=== PATIENT | female | born 1980 | race Caucasian/White ===

== ENCOUNTER 2017-04-18 22:11 | Inpatient (IN) | payer MEDICAID, OTHER ==
[~2017-04-18] VITALS: Ht 167.6 cm; Wt 91.8 kg
[~2017-04-18 22:11] MED LIST: MTF1000T PO
[2017-04-18 23:45] VITALS: Ht 167.6 cm; Wt 91.8 kg
[2017-04-19] MEDS ORDERED: BETAMET NA PHOS/AC(6 MG/ML) 5ML INJ IM SCH
[2017-04-19] MEDS ORDERED: MAGNESIUM SULFATE 4 GM/100 ML 100 ML IV ONE
[2017-04-19] MEDS ORDERED: MAGNESIUM SULFATE 20 GM/500 ML 500 ML IV SCH (00:30)
[2017-04-19] MEDS: LACTATED RINGER'S 1,000 ML IV SCH ×5 (00:52→23:28)
--- NOTE | 2017-04-19 00:57 | RADRPT ---
PROCEDURE: US OB. CLINICAL INDICATION: Contractions TECHNIQUE: Pelvic ultrasound performed for biophysical profile. COMPARISON: Complete obstetrical ultrasound 04/19/2017 FINDINGS: Single intrauterine gestation present with heart rate at 146 beats per minute. Presentation is chencho ch. Placenta is posterior, grade I. Biophysical profile score is 8/8 (breathing=2, movement=2, ton e =2, fluid volume=2). Amniotic fluid volume is increased with CARLOS = 21.4 cm. The closed cervix easley s a length measured at 3.2 cm. RPTAT:HJJR IMPRESSION: 1. Biophysical profile score 8/8. 2. Polyhydramnios, the amniotic fluid index of 21.4 cm. 3. Closed cervical length measured at 3.2 cm. Physician Ree Date Time Electronically viewed and signed by Physician Ree on 04/19/2017 00:57 /
[2017-04-19 01:18] LABS: BASOPHILS % 0.3 % (0.0-2.0); EOSINOPHILS # 0.1 10^3/ul (0.0-0.5); HEMATOCRIT 30.6 % (37.0-47.0); LYMPHOCYTES % 28.2 % (15.0-51.0); MEAN CORPUSCULAR HEMOGLOBIN 29.6 pg (29.0-33.0); MEAN CORPUSCULAR HGB CONC 35.9 g/dl (32.0-37.0); MEAN CORPUSCULAR VOLUME 82.5 fl (82.0-101.0); MEAN PLATELET VOLUME 11.2 fl (7.4-10.4); MONOCYTE # 0.7 10^3/ul (0.3-0.9); MONOCYTES % 10.4 % (0.0-11.0); NEUTROPHIL # 4.1 10^3/ul (1.6-7.5); NEUTROPHILS % 58.5 % (39.0-77.0); PLATELET COUNT 229 10^3/UL (140-415); RED BLOOD COUNT 3.71 10^6/ul (4.20-5.40); RED CELL DISTRIBUTION WIDTH 12.9 % (11.5-14.5)
[2017-04-19 01:35] LABS: INR 0.93; PROTIME 12.6 Sec (11.9-14.9)
[2017-04-19 01:36] LABS: PARTIAL THROMBOPLASTIN TIME 28.7 Sec (25.0-35.0)
[2017-04-19 01:40] LABS: ADD UMIC YES; UR ASCORBIC ACID 20 mg/dL (NEGATIVE); UR BACTERIA MANY /HPF (NONE SEEN); UR BILIRUBIN (Dip) NEGATIVE (NEGATIVE); UR BLOOD (Dip) NEGATIVE (NEGATIVE); UR CLARITY SLIGHTLY CLOUDY (CLEAR); UR COLOR YELLOW (YELLOW); UR GLUCOSE (Dip) 1+ mg/dL (NEGATIVE); UR KETONES (Dip) NEGATIVE (NEGATIVE); UR LEUKOCYTE ESTERASE (Dip) 2+ Leu/ul (NEGATIVE); UR MUCUS FEW /HPF (NONE SEEN); UR NITRITE (Dip) POSITIVE (NEGATIVE); UR RBC 2 /HPF (0-5); UR SPECIFIC GRAVITY (Dip) 1.019 (1.003-1.030); UR SQUAMOUS EPITHELIAL CELL FEW /HPF (FEW); UR TOTAL PROTEIN (Dip) NEGATIVE (NEGATIVE); UR UROBILINOGEN (Dip) NEGATIVE (NEGATIVE)
[2017-04-19 01:44] LABS: ALBUMIN 3.1 g/dl (3.3-4.9); ALBUMIN/GLOBULIN RATIO 0.75; BILIRUBIN,INDIRECT 0.2 mg/dl (0-1.1); BILIRUBIN,TOTAL 0.2 mg/dl (0.2-1.3); CALCIUM 9.7 mg/dl (8.4-10.2); CREATININE 0.49 mg/dl (0.44-1.00); TOTAL PROTEIN 7.2 g/dl (6.1-8.1)
[2017-04-19] MEDS: PRENATAL VITAMIN PO SCH (08:58)
[2017-04-19] MEDS: DOCUSATE SODIUM 100 MG CAP PO SCH (08:59)
[2017-04-19] MEDS: FERROUS SULFATE (EC) 325 MG TAB PO SCH ×2 (08:59→22:16)
--- NOTE | 2017-04-19 09:01 | PREOPHP ---
DATE OF ADMISSION: 04/18/2017 CHIEF COMPLAINT: Uncontrolled diabetes. HISTORY OF PRESENT ILLNESS: This is a 37-year-old female, 5, para 3, with 3 previous sections. EDC confirmed by early and serial ultrasound is 06/11/2017. She is a known diabetic and got without any control of her diabetes and no medication. She came into the office yesterday complaining of thirst and having had a fasting blood sugar of 280. It is unclear to me whether this patient has had knowledge of her insulin regimen and whether she is following it as prescribed. She had been followed with the [facility] group. She was apparently indicated to take 25 units of NPH insulin in the morning and 14 regular. Also, 25 units of NPH in the evening and 12 units of regular with dinner. Her hemoglobin A1c today is 80%. I have noticed by the OB ultrasound by the [facility] group she was found the baby to be already macrosomic on 03/26/2017. Also, a echocardiogram done on 2016 showed a small mid muscular VSD. Her NIPT done in the first trimester was low risk,a male baby. PAST MEDICAL HISTORY: She has been diabetic for at least 6 years. She denies hypertension, cardiovascular disease. She denies renal disease, liver disease, or neurological problems. ALLERGIES: NO KNOWN ALLERGIES. FAMILY HISTORY: Noncontributory. REVIEW OF SYSTEMS: A 12-point review of systems is noncontributory. PHYSICAL EXAMINATION: GENERAL: Well-developed and nourished, in no distress, alert and oriented x3. VITAL SIGNS: Showed temperature to be 98, blood pressure 120/70, respirations 16 per minute, the pulse is 72 per minute regular. HEENT: Within normal limits. Pupils are PERRLA. NECK: Supple. Thyroid is not palpable. There is no lymphadenopathy. LUNGS: Clear to percussion and auscultation. HEART: Normal sinus rhythm without a murmur. ABDOMEN: Soft. Uterus enlarged up to 36 cm above the pubic bone, single baby, longitudinal lie. heart rate is category 1. PELVIC: Deferred. EXTREMITIES: Within normal limits. NEUROLOGIC: Also normal. IMPRESSION: 33 weeks' gestation. Uncontrolled diabetes. Previous section x3. PLAN: The patient is admitted for uncontrolled diabetes. Consultation with perinatology.Consultation with [facility]. Dictated By: ALPESH SMITH/CAMI Conf#: [id number] DID#: [id number] MTDD
--- NOTE | 2017-04-19 17:32 | CONS ---
DATE OF ADMISSION: 04/18/2017 DATE OF CONSULTATION: 04/19/2017 HISTORY OF PRESENT ILLNESS: The patient is with intrauterine at 32 weeks and 3 days, pres ented last night with uncontrolled diabetes. She presented to her clinic. At clinic, her blood sug ar was elevated, and she was advised to come to the hospital. She is currently on insulin, the dosi ng she does not remember. The last time she took insulin was yesterday morning. Her insulin is man aged at [place]. Her fasting level today is 91 and apparently the 2-hour after breakfast was 121 . PAST MEDICAL HISTORY: Diabetes for 6 years, prior x____. VITAL SIGNS: Stable. PHYSICAL EXAMINATION: Deferred. heart tones reassuring. IMPRESSION: 1. Intrauterine at 32 weeks and 3 days with diabetes, apparently uncontrolled on insulin; however, her fasting value and 2-hour after breakfast here have been normal. 2. History of section x3, all of them secondary to macrosomia. The patient states that sh flower has had deliveries, all 3, at about 32 weeks because of macrosomia. I am not exactly sure if she is reporting this correctly, but the weight of the babies has been about 10 pounds, 12 pounds and th e last 8 pounds. RECOMMENDATIONS: 1. For the time being, I would ____ discontinue the insulin that she was taking at home, ____ insul in sliding scale until further values are available throughout the day and tomorrow, we will re-eval uate if there is a need for insulin, but for now I do recommend no insulin except for sliding scale as needed. 2. Complete metabolic panel and 24-hour urine for protein. 3. Nutrition consult has been ordered. We will follow the patient with you. Dictated By: GERALD VALENTIN MD ST/CAMI Conf#: [id number] DID#: [id number] CC: ALPESH LEVINE MD;*End*
[2017-04-19] MEDS ORDERED: INSULIN ASPART [NOVOLOG] 3 ML PEN SC SCH ×2 (17:35→19:35)
[2017-04-19] MEDS ORDERED: INSULIN DETEMIR [LEVEMIR] 3ML CART SC SCH (20:00)
[2017-04-19] MEDS ORDERED: DEXTROSE 50% 50 ML SYRINGE IV PRN ×2 (21:30)
[2017-04-19] MEDS ORDERED: GLUCAGON 1 MG INJ IM PRN (21:30)
[2017-04-19] MEDS ORDERED: GLUCOSE GEL 15 GRAM TUBE PO PRN ×2 (21:30)
[2017-04-19] MEDS ORDERED: GLUCOSE GEL 15 GRAM TUBE BUCCAL PRN (21:30)
--- NOTE | 2017-04-19 21:30 | CONS ---
Date/Time of Note Date/Time of Note DATE: 04/19/17 TIME: 21:22 Assessment/Plan Assessment/Plan Problems: (1) with type 2 diabetes mellitus in third trimester Status: Chronic Comment: The patient is now between 32 and 33 weeks gestation. In terms of size and anatomy am deferring off management to the issues for perinatology which will be taken over by Dr. Grullon in the morning. Dr. Howard is the primary clinical assessment manager. The dosing of insulin that she was taking as an outpatient was actually significantly higher than she was initially here in the first 24 hours. I find this to be a somewhat curious thing and I am worried about dosing her at her original levels. We should actually have a smoother ride using the newer analog insulins which I can arrange to get for her as an outpatient. For now and place her on a lower dosage of the Levemir with mealtime rapid acting insulins or basal bolus regimen and follow her along carefully please note I do not feel that metformin is presently to be used.. I will try my best to coordinate with the perinatology team and the primary OB. Respectfully yours Consultation Date/Type/Reason Admit Date/Time Apr 18, 2017 at 22:14 Date of Consultation: Apr 19, 2017 Type of Consultation: Endocrinology Reason for Consultation 37-year-old female Ab1 roughly 32-33 weeks gestation. Referring Provider: ALPESH HOWARD MD Hx of Present Illness She has a history of gestational diabetes starting 11 years ago. After her last she reportedly was diabetic . She reported that she was not under any specific physician's care and she enjoyed good blood sugar control up to the time of due to diet and exercise protocol with no medical intervention. She has been managed for work by our colleagues at [facility] in the [facility] group. I do not have immediate access to the records but I am told by our in-house perinatologist that she has reviewed them. At this time the patient has been admitted for in adequate glycemic control along with somewhat large size baby and possible VSD. Again as stated I do not have access to her earlier laboratory testing her A1c at this time is 8.0. Dr. duval he has already seen the patient in consultation and has asked me to now step in and assist with glycemic management specifically Constitutional: no complaints Eyes: no complaints ENT: no complaints (No known complications right related to the eyes) Respiratory: no complaints Cardiovascular: no complaints Gastrointestinal: no complaints Genitourinary: no complaints Musculoskeletal: no complaints Skin: no complaints Neurologic: no complaints Endocrine: polyuria Lymphatic: no complaints Psychological: nl mood/affect, no complaints Past Medical History Medical History: diabetes, other ( Ab1 with an EDC of June 10, 2017; gestational diabetes; diabetes mellitus type 2; usual childhood diseases; history of varus sella) Past Surgical History Past Surgical Hx: other (Status post 3) Family History Significant Family History: diabetes Social History Alcohol Use: rarely Smoking Status: Never smoker Drug Use: none Exam/Review of Systems Vital Signs Vitals Intake and Output 04/18/17 04/18/17 04/19/17 15:00 23:00 07:00 Intake Total 2000 ml Output Total 600 ml Balance 1400 ml Exam Constitutional: alert, oriented Psych: nl mood/affect, no complaints Head: atraumatic, normocephalic Eyes: EOMI, nl conjunctiva, nl lids ENMT: nl external ears & nose, nl lips & teeth, nl nasal mucosa & septum Neck: non-tender, supple Respiratory: clear to auscultation, normal air movement Cardiovascular: nl pulses, regular rate and rhythm Gastrointestinal: nl liver, spleen, non-tender, soft Results Result Diagram: 04/19/174604/19/1746 Results 24 hrs Laboratory Tests Test 04/18/17 23:10 04/19/17 00:15 04/19/17 00:47 04/19/17 07:44 Bedside Glucose 189 91 Urine Color YELLOW Urine Clarity SLIGHTLY CLOUDY A Urine pH 5.0 Urine Specific [place] 1.019 Urine Ketones NEGATIVE Urine Nitrite POSITIVE A Urine Bilirubin NEGATIVE Urine Urobilinogen NEGATIVE Urine Leukocyte Esterase 2+ H Urine Microscopic RBC 2 Urine Microscopic WBC 37 H Urine Squamous Epithelial Cells FEW Urine Bacteria MANY A Urine Mucus FEW A Urine Hemoglobin NEGATIVE Urine Glucose 1+ H Urine Total Protein NEGATIVE White Blood Count 7.0 Red Blood Count 3.71 L Hemoglobin 11.0 L Hematocrit 30.6 L Mean Corpuscular Volume 82.5 Mean Corpuscular Hemoglobin 29.6 Mean Corpuscular Hemoglobin Concent 35.9 Red Cell Distribution Width 12.9 Platelet Count 229 Mean Platelet Volume 11.2 H Neutrophils % 58.5 Lymphocytes % 28.2 Monocytes % 10.4 Eosinophils % 2.0 Basophils % 0.3 Nucleated Red Blood Cells % 0.0 Neutrophils # 4.1 Lymphocytes # 2.0 Monocytes # 0.7 Eosinophils # 0.1 Basophils # 0.0 Nucleated Red Blood Cells # 0.0 Prothrombin Time 12.6 Prothrombin Time Ratio 1.0 INR International Normalized Ratio 0.93 Activated Partial Thromboplast Time 28.7 Sodium Level 135 Potassium Level 4.0 Chloride Level 105 Carbon Dioxide Level 21 Anion Gap 13 Blood Urea Nitrogen 11 Creatinine 0.49 Glucose Level 154 Hemoglobin A1c 8.0 H Calcium Level 9.7 Total Bilirubin 0.2 Direct Bilirubin 0.00 Indirect Bilirubin 0.2 Aspartate Amino Transf (AST/SGOT) 30 Alanine Aminotransferase (ALT/SGPT) 39 Alkaline Phosphatase 127 H Total Protein 7.2 Albumin 3.1 L Globulin 4.10 H Albumin/Globulin Ratio 0.75 Rapid Plasma Reagin NONREACTIVE Hepatitis B Surface Antigen NEGATIVE Hepatitis C Antibody NEGATIVE Test 04/19/17 11:07 04/19/17 15:54 04/19/17 20:31 Bedside Glucose 121 146 146 Medications Medications Outpatient medications were NPH insulin 20 units in the morning 25 units at bedtime regular insulin 12 units in the morning 14 units at dinner. And vitamins Current Medications Lactated Ringer's (Lr) 1,000 ml @ 125 mls/hr Q8H IV Last administered on 15:08; Admin Dose 125 MLS/HR; Start 04/18/17 at 23:45 Prenat Multivit/ [place]/Iron/Folic Ac () 1 tab DAILY PO Last administered on 04/19/17 08:58; Admin Dose 1 TAB; Start 04/19/17 at 09:00 Ferrous Sulfate (Ferrous Sulfate (Ec)) 325 mg BID PO Last administered on 08:59; Admin Dose 325 MG; Start 04/19/17 at 09:00 Docusate Sodium (Colace) 100 mg DAILY PO ; Start 04/19/17 at 09:00 Miscellaneous Information (* Miscellaneous Pharmacy Order) Discontinue current oral sulfonylur... ONCE ONCE XX ; Start 04/19/17 at 21:30; Stop 04/19/17 at 21: 31; Status UNV Diagnostic Test (Pha) (Accu-Chek) 1 XX ; Start 04/20/17 at 02:00; Status UNV Insulin Detemir (Levemir) 14 unit DAILY@20 SC ; Start 04/20/17 at 20:00; Status UNV Miscellaneous Information (* Miscellaneous Pharmacy Order) HYPOGLYCEMIA PROTOCOL w... ONCE ONCE XX ; Start 04/19/17 at 21:30; Stop 04/19/17 at 21:31; Status UNV Miscellaneous Information (* Miscellaneous Pharmacy Order) Discontinue all previ... ONCE ONCE XX ; Start 04/19/17 at 21:30; Stop 04/19/17 at 21:31; Status UNV ALLISON AGUIRRE MD Apr 19, 2017 21:30
[2017-04-19] MEDS: INSULIN DETEMIR [LEVEMIR] 3ML CART SC SCH (22:16)
[2017-04-20] MEDS ORDERED: ACCU-CHEK XX SCH (02:00)
[2017-04-20] MEDS: ACCU-CHEK XX SCH ×6 (02:04→20:50)
[2017-04-20] MEDS: DOCUSATE SODIUM 100 MG CAP PO SCH (06:15)
[2017-04-20] MEDS: LACTATED RINGER'S 1,000 ML IV SCH ×3 (07:24→23:49)
[2017-04-20] MEDS ORDERED: INSULIN ASPART [NOVOLOG] 3 ML PEN SC SCH (07:35)
[2017-04-20] MEDS: INSULIN ASPART [NOVOLOG] 3 ML PEN SC SCH ×4 (08:25→21:23)
--- NOTE | 2017-04-20 08:40 | CONS ---
Date/Time of Note Date/Time of Note DATE: 04/20/17 TIME: 08:38 Assessment/Plan Assessment/Plan Chief Complaint/Hosp Course She has a history of gestational diabetes starting 11 years ago. After her last she reportedly was diabetic . She reported that she was not under any specific physician's care and she enjoyed good blood sugar control up to the time of due to diet and exercise protocol with no medical intervention. She has been managed for work by our colleagues at [facility] in the [facility] group. I do not have immediate access to the records but I am told by our in-house perinatologist that she has reviewed them. At this time the patient has been admitted for in adequate glycemic control along with somewhat large size baby and possible VSD. Again as stated I do not have access to her earlier laboratory testing her A1c at this time is 8.0. Dr. duval he has already seen the patient in consultation and has asked me to now step in and assist with glycemic management specifically Problems: (1) with type 2 diabetes mellitus in third trimester Status: Chronic Comment: With a more modest dose of long-acting insulin she has a fasting blood sugar that is exactly within range. I have re-counseled the nursing staff about mealtime insulins and then using the sliding scale. I have also re- counseled him not to use insulin at the 2 hour postprandial sanchez as I will slow down my ability to adjust the regimen. Continue with treatment. Regarding the possibility that we have macrosomia with the baby and the possible VSD and deferring off to perinatology who I am informed will be Dr. Grullon. Consultation Date/Type/Reason Admit Date/Time Apr 18, 2017 at 22:14 Initial Consult Date 04/19/17 Type of Consultation: Endocrinology Reason for Consultation History of insulin resistance syndrome and diabetes mellitus type 2 now in the third trimester with elevated sugars and A1c of 8.0 Referring Provider: ALPESH LEVINE MD 24 HR Interval Summary Constitutional: no complaints (No fevers chills or sweats) Detailed Summary Respiratory: no complaints Cardiovascular: no complaints Gastrointestinal: no complaints Genitourinary: no complaints Exam/Review of Systems Vital Signs Vitals Intake and Output 04/19/17 04/19/17 04/20/17 15:00 23:00 07:00 Intake Total 1000 ml 875 ml 1000 ml Output Total 600 ml 900 ml 500 ml Balance 400 ml -25 ml 500 ml Exam Constitutional: alert, oriented Neck: non-tender, supple Respiratory: clear to auscultation, normal air movement Cardiovascular: nl pulses, regular rate and rhythm Gastrointestinal: nl liver, spleen, non-tender, soft Results Result Diagram: 04/19/17 0047 04/19/17 0047 Results 24 hrs Laboratory Tests Test 04/19/17 11:07 04/19/17 15:54 04/19/17 20:31 04/19/17 22:06 Bedside Glucose 121 146 146 99 Test 04/20/17 08:15 Bedside Glucose 79 Medications Medications Current Medications Lactated Ringer's (Lr) 1,000 ml @ 125 mls/hr Q8H IV Last administered on 07:24; Admin Dose 125 MLS/HR; Start 04/18/17 at 23:45 Prenat Multivit/ [place]/Iron/Folic Ac () 1 tab DAILY PO Last administered on 04/19/17 08:58; Admin Dose 1 TAB; Start 04/19/17 at 09:00 Ferrous Sulfate (Ferrous Sulfate (Ec)) 325 mg BID PO Last administered on 22:16; Admin Dose 325 MG; Start 04/19/17 at 09:00 Docusate Sodium (Colace) 100 mg DAILY PO Last administered on 04/20/17 06:15; Admin Dose 100 MG; Start 04/19/17 at 09:00 Diagnostic Test (Pha) (Accu-Chek) 1 ea 02 XX ; Start 04/20/17 at 02:00 Insulin Detemir (Levemir) 14 unit DAILY@20 SC Last administered on 04/19/17 22 :16; Admin Dose 14 UNIT; Start 04/19/17 at 21:30 Miscellaneous Information 1 ea NOTE XX ; Start 04/19/17 at 21:30 Glucose (Glutose) 15 gm Q15M PRN PO DECREASED GLUCOSE; Start 04/19/17 at 21:30 Glucose (Glutose) 22.5 gm Q15M PRN PO DECREASED GLUCOSE; Start 04/19/17 at 21: 30 Dextrose (D50w Syringe) 25 ml Q15M PRN IV DECREASED GLUCOSE; Start 04/19/17 at 21:30 Dextrose (D50w Syringe) 50 ml Q15M PRN IV DECREASED GLUCOSE; Start 04/19/17 at 21:30 Glucagon (Glucagen) 1 mg Q15M PRN IM DECREASED GLUCOSE; Start 04/19/17 at 21:30 Glucose (Glutose) 15 gm Q15M PRN BUCCAL DECREASED GLUCOSE; Start 04/19/17 at 21 :30 ALLISON AGUIRRE MD Apr 20, 2017 08:40
[2017-04-20] MEDS: PRENATAL VITAMIN PO SCH (09:21)
[2017-04-20] MEDS: FERROUS SULFATE (EC) 325 MG TAB PO SCH ×2 (09:21→21:28)
--- NOTE | 2017-04-20 09:29 | QN ---
Documentation Comment Afebrile.In good glycemic control guided by and Perinatologist. Controlled on diet and minimal amount of correcting Insulin. Baby continues to show normal activity and FHR are category 1. ALPESH LEVINE MD Apr 20, 2017 09:29
[2017-04-20 11:53] LABS: SCRET 0.49 mg/dl (0.44-1.00)
--- NOTE | 2017-04-20 13:58 | PERINOTE ---
Date/Time of Note Date/Time of Note DATE: 04/20/17 TIME: 13:47 Assessment/Recommendations Other Assessments Type 2 diabetes complicating --Elevated blood glucose on prior regimen --Patient also reports multiple hypoglycemic episodes on prior regimen History of macrosomia, with large AC described in the present fetus on ultrasound in March. This is likely a effect of maternal diabetes. Recommendations: Would continue insulin as prescribed. If the blood glucose remains under control, would favor discharge in the AM, with follow up in Perinatology in 2 week for diabetes management and at 37 weeks for ultrasound for EFW. OB Subjective Free Text/Dictaton Patient admitted for elevated blood glucose in her clinic for diabetic control. She gives a history of diabetes for the past 6 years, managed in by [facility] at [facility]. Her diabetes has not been well controlled, with HgbA1c of 10.8% in October and 8.3% in December. HD# 2 IUP @ 32W3D Complaints/Overnight events Blood glucose values in the hospital have been at or near desired levels on insulin dose as ordered by Dr. Han. Current Medications Current Medications Lactated Ringer's (Lr) 1,000 ml @ 125 mls/hr Q8H IV Last administered on 07:24; Admin Dose 125 MLS/HR; Start 04/18/17 at 23:45 Prenat Multivit/ [place]/Iron/Folic Ac () 1 tab DAILY PO Last administered on 04/20/17 09:21; Admin Dose 1 TAB; Start 04/19/17 at 09:00 Ferrous Sulfate (Ferrous Sulfate (Ec)) 325 mg BID PO Last administered on 09:21; Admin Dose 325 MG; Start 04/19/17 at 09:00 Docusate Sodium (Colace) 100 mg DAILY PO Last administered on 04/20/17 06:15; Admin Dose 100 MG; Start 04/19/17 at 09:00 Diagnostic Test (Pha) (Accu-Chek) 1 ea 02 XX ; Start 04/20/17 at 02:00 Insulin Detemir (Levemir) 14 unit DAILY@20 SC Last administered on 04/19/17 22 :16; Admin Dose 14 UNIT; Start 04/19/17 at 21:30 Miscellaneous Information 1 ea NOTE XX ; Start 04/19/17 at 21:30 Glucose (Glutose) 15 gm Q15M PRN PO DECREASED GLUCOSE; Start 04/19/17 at 21:30 Glucose (Glutose) 22.5 gm Q15M PRN PO DECREASED GLUCOSE; Start 04/19/17 at 21: 30 Dextrose (D50w Syringe) 25 ml Q15M PRN IV DECREASED GLUCOSE; Start 04/19/17 at 21:30 Dextrose (D50w Syringe) 50 ml Q15M PRN IV DECREASED GLUCOSE; Start 04/19/17 at 21:30 Glucagon (Glucagen) 1 mg Q15M PRN IM DECREASED GLUCOSE; Start 04/19/17 at 21:30 Glucose (Glutose) 15 gm Q15M PRN BUCCAL DECREASED GLUCOSE; Start 04/19/17 at 21 :30 Past Medical History Medical History: diabetes Surgical History: other ( delivery x 3, abdominoplasty) 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 Macrosomia x 3, largest 13#) Para: 3 : 5 LMP (Females 10-50): Family History Significant Family History: diabetes OB Admission Exam Physical Exam Heart: Rhythm Normal Lungs: Clear Abdomen: WNL Heart Rate: 130's Accelerations: Accelerations Present Decelerations: No Decelerations Varibility: Moderate Contractions on Admission: None Last 72 hourBlood Glucose Bedside Glucose - 72 Hours Test 04/18/17 23:10 04/19/17 07:44 04/19/17 11:07 04/19/17 15:54 Bedside Glucose 189mg/dL (70-220) 91mg/dL (70-220) 121mg/dL (70-220) 146mg/dL (70-220) Test 04/19/17 20:31 04/19/17 22:06 04/20/17 08:15 04/20/17 10:29 Bedside Glucose 146mg/dL (70-220) 99mg/dL (70-220) 79mg/dL (70-220) 94mg/dL (70-220) Test 04/20/17 12:06 Bedside Glucose 75mg/dL (70-220) Last 72 hours Lab Results CBC & BMP 04/19/17 00:47 04/19/17 14:30 Liver Function Test 04/19/17 00:47 Alanine Aminotransferase (ALT/SGPT) 39 Albumin 3.1 L Alkaline Phosphatase 127 H Aspartate Amino Transf (AST/SGOT) 30 Direct Bilirubin 0.00 Total Protein 7.2 Hemoglobin A1C Test 04/19/17 00:47 Hemoglobin A1c 8.0 H Copies To: CC: ALPESH LEVINE MD, MARIE H MD Apr 20, 2017 13:58
[2017-04-20] MEDS: INSULIN DETEMIR [LEVEMIR] 3ML CART SC SCH (20:53)
[2017-04-21] MEDS: ACCU-CHEK XX SCH ×4 (02:04→20:16)
[2017-04-21] MEDS: LACTATED RINGER'S 1,000 ML IV SCH (07:35)
[2017-04-21] MEDS: INSULIN ASPART [NOVOLOG] 3 ML PEN SC SCH ×7 (08:05→21:00)
[2017-04-21] MEDS: PRENATAL VITAMIN PO SCH (08:48)
[2017-04-21] MEDS: DOCUSATE SODIUM 100 MG CAP PO SCH (08:48)
[2017-04-21] MEDS: FERROUS SULFATE (EC) 325 MG TAB PO SCH ×2 (08:48→21:18)
--- NOTE | 2017-04-21 12:00 | QN ---
Documentation Comment 37y.o x3c/s 32w5d today tracing CAT 1 no uterine activities BS generally controlled with current regimen without additional sliding scae coverage except one time of high value at 199904/20/17 ( mostlikely she had apple juice ) u/s CARLOS 21.4 BPP 8/8 CVL 3.2 urine culture prelim pos for Gram neg rods sensitive to nitrafurantoin plan observe today follow MFM rec d/s home in am possibly DAVID CANTRELL MD Apr 21, 2017 12:00
--- NOTE | 2017-04-21 19:41 | CONS ---
Date/Time of Note Date/Time of Note DATE: 04/21/17 TIME: 19:40 Assessment/Plan Assessment/Plan Problems: (1) with type 2 diabetes mellitus in third trimester Status: Chronic Comment: improved glycemic control. meeting most glycemic targets Consultation Date/Type/Reason Admit Date/Time Apr 18, 2017 at 22:14 Initial Consult Date 04/19/17 Type of Consultation: Endocrinology Referring Provider: ALPESH LEVINE MD Exam/Review of Systems Vital Signs Vitals Intake and Output 04/20/17 04/20/17 04/21/17 15:00 23:00 07:00 Intake Total 300 ml 2575 ml 1000 ml Output Total 800 ml 2200 ml 600 ml Balance -500 ml 375 ml 400 ml Results Result Diagram: 04/19/17 0047 04/19/17 1430 Results 24 hrs Laboratory Tests Test 04/20/17 20:50 04/21/17 02:03 04/21/17 08:14 04/21/17 11:07 Bedside Glucose 184 93 76 93 Test 04/21/17 12:37 04/21/17 14:48 04/21/17 17:51 Bedside Glucose 108 135 99 Medications Medications Current Medications Prenat Multivit/ [place]/Iron/Folic Ac () 1 tab DAILY PO Last administered on 04/21/17 08:48; Admin Dose 1 TAB; Start 04/19/17 at 09:00 Ferrous Sulfate (Ferrous Sulfate (Ec)) 325 mg BID PO Last administered on 08:48; Admin Dose 325 MG; Start 04/19/17 at 09:00 Docusate Sodium (Colace) 100 mg DAILY PO Last administered on 04/21/17 08:48; Admin Dose 100 MG; Start 04/19/17 at 09:00 Diagnostic Test (Pha) (Accu-Chek) 1 ea 02 XX Last administered on 04/21/17 02: 04; Admin Dose 1 EA; Start 04/20/17 at 02:00 Insulin Detemir (Levemir) 14 unit DAILY@20 SC Last administered on 04/20/17 20 :53; Admin Dose 14 UNIT; Start 04/19/17 at 21:30 Miscellaneous Information 1 ea NOTE XX ; Start 04/19/17 at 21:30 Glucose (Glutose) 15 gm Q15M PRN PO DECREASED GLUCOSE; Start 04/19/17 at 21:30 Glucose (Glutose) 22.5 gm Q15M PRN PO DECREASED GLUCOSE; Start 04/19/17 at 21: 30 Dextrose (D50w Syringe) 25 ml Q15M PRN IV DECREASED GLUCOSE; Start 04/19/17 at 21:30 Dextrose (D50w Syringe) 50 ml Q15M PRN IV DECREASED GLUCOSE; Start 04/19/17 at 21:30 Glucagon (Glucagen) 1 mg Q15M PRN IM DECREASED GLUCOSE; Start 04/19/17 at 21:30 Glucose (Glutose) 15 gm Q15M PRN BUCCAL DECREASED GLUCOSE; Start 04/19/17 at 21 :30 Nitrofurantoin Macrocrystals (Macrobid) 100 mg BID PO ; Start 04/21/17 at 21:00 KAMLESH YARBROUGH MD Apr 21, 2017 19:41
[2017-04-21] MEDS: INSULIN DETEMIR [LEVEMIR] 3ML CART SC SCH (20:19)
[2017-04-21] MEDS: NITROFURANTOIN (SR) 100 MG CAP PO SCH (21:18)
[2017-04-22] MEDS: ACCU-CHEK XX SCH ×4 (01:39→20:41)
[2017-04-22 01:56] LABS: AADO2 Arterial 158.6 mmHg (7.0-24.0); Allen Test ACCEPTAB; Arterial Base Excess -4.4 mmol/L (-3.0-3); Arterial COHb 0.2 % (0.0-3.0); Arterial Fraction of Oxyhgb 98.7 % (93.0-99.0); Arterial HCO3 17.9 mmol/L (22.0-26.0); Arterial MetHb 0 % (0.0-1.5); Arterial Total Hemglobin 11.5 g/dl (12.0-18.0); MODE SIMPLE MASK
[2017-04-22] MEDS ORDERED: LACTATED RINGER'S 1,000 ML IV SCH (02:00)
[2017-04-22 02:10] LABS: BASOPHILS % 0.4 % (0.0-2.0); EOSINOPHILS # 0.1 10^3/ul (0.0-0.5); HEMATOCRIT 30.3 % (37.0-47.0); HEMOGLOBIN 10.6 g/dl (12.0-16.0); LYMPHOCYTES # 1.8 10^3/ul (0.8-2.9); LYMPHOCYTES % 25.5 % (15.0-51.0); MONOCYTE # 0.7 10^3/ul (0.3-0.9); MONOCYTES % 9.5 % (0.0-11.0); NEUTROPHIL # 4.4 10^3/ul (1.6-7.5); NEUTROPHILS % 62.2 % (39.0-77.0); PLATELET COUNT 218 10^3/UL (140-415); RED BLOOD COUNT 3.65 10^6/ul (4.20-5.40); WHITE BLOOD COUNT 7.1 10^3/ul (4.8-10.8)
[2017-04-22 02:31] LABS: ALBUMIN 2.8 g/dl (3.3-4.9); ALBUMIN/GLOBULIN RATIO 0.75; BILIRUBIN,INDIRECT 0.2 mg/dl (0-1.1); BILIRUBIN,TOTAL 0.2 mg/dl (0.2-1.3); CREATININE 0.44 mg/dl (0.44-1.00); POTASSIUM 3.7 mmol/L (3.5-5.1); TOTAL PROTEIN 6.5 g/dl (6.1-8.1)
--- NOTE | 2017-04-22 02:34 | QN ---
Documentation Comment I was called to evaluate the patient after a rapid response code was called due to patient's unresponsiveness Upon arrival patient was noted to be conscious with stable vital signs, Last blood sugar 89, O2 sat 100% The [facility] response team was evaluating the patient and giving orders This is 37y.o at 32 weeks and 6 days of gestation with uncontrolled type 2 diabetes on insulin Patient has received betamethasone 2 doses for lung maturity Patient with prior history of 3 and abdominoplasty OB ultrasound by the [facility] group she was found the baby to be macrosomic on 03/26/2017. Also, a echocardiogram done on 03/10/2017 showed a small mid muscular VSD. Her NIPT done in the first trimester was low risk,a male baby. heart rate tracing CAT 1 , regular uterine contraction q5 Assessment and plan Follow rapid response team management We will administer IV fluid We will obtain biophysical profile and cervical length Continue to monitor the patient closely MAY ANDRADE MD Apr 22, 2017 02:34
--- NOTE | 2017-04-22 03:02 | RADRPT ---
PROCEDURE: Ultrasound Biophysical profile with amniotic fluid index CLINICAL INDICATION: Loss of consciousness TECHNIQUE: Color and garcia-scale ultrasound images of an intrauterine gestation were obtained. COMPARISON: US PELVIS 04/19/2017 FINDINGS: A single live intrauterine gestation is identified in cephalic position with an estimated hear t rate of 131 beats per minute. The placenta is posterior and fundal and grade 1. CARLOS is 25.73 cm. movement 2/2. tone 2/2. breathing movement 2/2. Qualitative AFV 2/2 Total biophysical profile 12/19 IMPRESSION: 12/19 biophysical profile. Amniotic fluid index equals 25.73 cm consistent with polyhydramnios. RPTAT: HJES .Angelo Guerra MD, MD Date Time Electronically viewed and signed by .Angelo Guerra MD, on 04/22/2017 03:02 .S/
--- NOTE | 2017-04-22 03:17 | RADRPT ---
PROCEDURE: US OB cervical length CLINICAL INDICATION: labor. Clinical estimate gestational age is 32 weeks 6 days with est imated date of delivery 06/11/2017 TECHNIQUE: Multiple sonographic images of the pelvis were obtained. The images were reviewed on a PACS workstation. COMPARISON: US PELVIS 04/22/2017 FINDINGS: The cervix is closed with a length of 3.62 cm on transvaginal ultrasound. There is a single live intrauterine gestation. Cardiac activity is present with 131 beats per minut e. There is a cephalic position. The placenta is fundal and posterior and grade 1. There is no evidence for an abruption. There is no evidence of placenta previa. IMPRESSION: Single live intrauterine gestation. Length of cervix equals 3.62 cm. RPTAT: HJES .Angelo Guerra MD, Date Time Electronically viewed and signed by .Angelo Guerra MD, on 04/22/2017 03:17 .S/
[2017-04-22] MEDS: INSULIN ASPART [NOVOLOG] 3 ML PEN SC SCH ×7 (08:05→21:00)
[2017-04-22] MEDS: NITROFURANTOIN (SR) 100 MG CAP PO SCH ×2 (08:34→20:42)
[2017-04-22] MEDS: DOCUSATE SODIUM 100 MG CAP PO SCH (08:34)
[2017-04-22] MEDS: PRENATAL VITAMIN PO SCH (08:35)
[2017-04-22] MEDS: FERROUS SULFATE (EC) 325 MG TAB PO SCH ×2 (08:35→20:51)
--- NOTE | 2017-04-22 11:12 | QN ---
Documentation Comment IUP 32w6d today with polyhydamnious,UTI, Hx of syncope EFM uterine irritability cat I tracing early this am around 0100 syncopal episode reported by her brother ,called rapid responsing team, immediate BS 89 according to patient she had similar episode on sunday pm ,unable to pushed call [place] didn't loose consciousness prior to this am episode she had cold sweating and shaking of which info obtained per target worker/phone. unable to related to hypoglycemic syncope. plan close monitoring BS with timely snack CT brain? DAVID CANTRELL MD Apr 22, 2017 11:11
--- NOTE | 2017-04-22 17:22 | CONS ---
Date/Time of Note Date/Time of Note DATE: 04/22/17 TIME: 17:18 Assessment/Plan Assessment/Plan Problems: (1) with type 2 diabetes mellitus in third trimester Status: Chronic Comment: at goal glycemic target but susceptible to hypoglycemic symptoms. Additional Assessment/Plan Recommend regular timed meals and regular timed snacks. Post prandial target should remain less than 120 mg/dl but patient will likely feel better with blood glucose readings between 90 and 110 mg/dl Cont'd Hospitalization Reason: Stable for discharge home tomorrow Consultation Date/Type/Reason Admit Date/Time Apr 18, 2017 at 22:14 Initial Consult Date 04/19/17 Type of Consultation: Endocrinology Referring Provider: ALPESH LEVINE MD 24 HR Interval Summary Free Text/Dictation Syncopal episode last night. Patient with symptoms of hypoglycemia despite blood sugars at recommended targets for . Exam/Review of Systems Vital Signs Vitals Intake and Output 04/21/17 04/21/17 04/22/17 15:00 23:00 07:00 Intake Total 525 ml Output Total 500 ml 1000 ml Balance -500 ml -475 ml Exam Constitutional: alert, oriented, well developed Results POC glucose reviewed Result Diagram: 04/22/17 0153 04/22/17 0153 Results 24 hrs Laboratory Tests Test 04/21/17 17:51 04/21/17 20:16 04/21/17 21:24 04/22/17 01:37 Bedside Glucose 99 122 96 89 Test 04/22/17 01:42 04/22/17 01:53 04/22/17 04:27 04/22/17 07:22 Blood Gas Specimen Source Blood arterial Arterial Blood Date Drawn 04/22/2017 1:47:00 AM Arterial Blood pH (Temp corrected) 7.469 H Arterial Blood pCO2 (Temp correct) 25.2 L Arterial Blood pO2 (Temp corrected) 191.1 H Arterial Blood HCO3 17.9 L Arterial Blood Base Excess -4.4 L Arterial Blood Oxygen Saturation 98.9 H [place] Test ACCEPTAB Arterial Blood Gas Puncture Site Left Radial Arterial Blood Carboxyhemoglobin 0.2 Arterial Blood Methemoglobin 0 Blood Gas A-a O2 Differential 158.6 H Oxyhemoglobin Percent 98.7 Total Hemoglobin 11.5 L Blood Gas Temperature 37.0 Blood Gas Modality SIMPLE MASK FiO2 53.0 Blood Gas Notified Whom RTR Blood Gas Notified Time 04/22/2017 1:55:00 AM White Blood Count 7.1 Red Blood Count 3.65 L Hemoglobin 10.6 L Hematocrit 30.3 L Mean Corpuscular Volume 83.0 Mean Corpuscular Hemoglobin 29.0 Mean Corpuscular Hemoglobin Concent 35.0 Red Cell Distribution Width 13.0 Platelet Count 218 Mean Platelet Volume 11.0 H Neutrophils % 62.2 Lymphocytes % 25.5 Monocytes % 9.5 Eosinophils % 2.0 Basophils % 0.4 Nucleated Red Blood Cells % 0.0 Neutrophils # 4.4 Lymphocytes # 1.8 Monocytes # 0.7 Eosinophils # 0.1 Basophils # 0.0 Nucleated Red Blood Cells # 0.0 Sodium Level 137 Potassium Level 3.7 Chloride Level 109 Carbon Dioxide Level 20 L Anion Gap 12 Blood Urea Nitrogen 8 Creatinine 0.44 Glucose Level 90 Calcium Level 9.0 Total Bilirubin 0.2 Direct Bilirubin 0.00 Indirect Bilirubin 0.2 Aspartate Amino Transf (AST/SGOT) 41 Alanine Aminotransferase (ALT/SGPT) 43 Alkaline Phosphatase 115 Total Protein 6.5 Albumin 2.8 L Globulin 3.70 H Albumin/Globulin Ratio 0.75 Bedside Glucose 114 97 Test 04/22/17 10:39 04/22/17 12:40 04/22/17 14:49 Bedside Glucose 112 109 121 Medications Medications Current Medications Prenat Multivit/ [place]/Iron/Folic Ac () 1 tab DAILY PO Last administered on 04/22/17 08:35; Admin Dose 1 TAB; Start 04/19/17 at 09:00 Ferrous Sulfate (Ferrous Sulfate (Ec)) 325 mg BID PO Last administered on 04/22 08:35; Admin Dose 325 MG; Start 04/19/17 at 09:00 Docusate Sodium (Colace) 100 mg DAILY PO Last administered on 04/22/17 08:34 ; Admin Dose 100 MG; Start 04/19/17 at 09:00 Diagnostic Test (Pha) (Accu-Chek) 1 ea 02 XX Last administered on 04/22/17 01 :39; Admin Dose 1 EA; Start 04/20/17 at 02:00 Insulin Detemir (Levemir) 14 unit DAILY@20 SC Last administered on 04/21/17 20 :19; Admin Dose 14 UNIT; Start 04/19/17 at 21:30 Miscellaneous Information 1 ea NOTE XX ; Start 04/19/17 at 21:30 Glucose (Glutose) 15 gm Q15M PRN PO DECREASED GLUCOSE; Start 04/19/17 at 21:30 Glucose (Glutose) 22.5 gm Q15M PRN PO DECREASED GLUCOSE; Start 04/19/17 at 21: 30 Dextrose (D50w Syringe) 25 ml Q15M PRN IV DECREASED GLUCOSE; Start 04/19/17 at 21:30 Dextrose (D50w Syringe) 50 ml Q15M PRN IV DECREASED GLUCOSE; Start 04/19/17 at 21:30 Glucagon (Glucagen) 1 mg Q15M PRN IM DECREASED GLUCOSE; Start 04/19/17 at 21:30 Glucose (Glutose) 15 gm Q15M PRN BUCCAL DECREASED GLUCOSE; Start 04/19/17 at 21 :30 Nitrofurantoin Macrocrystals (Macrobid) 100 mg BID PO Last administered on t 08:34; Admin Dose 100 MG; Start 04/21/17 at 21:00 KAMLESH YARBROUGH MD Apr 22, 2017 17:22
[2017-04-22] MEDS: INSULIN DETEMIR [LEVEMIR] 3ML CART SC SCH (20:44)
[2017-04-23] MEDS: ACCU-CHEK XX SCH ×4 (02:28→20:37)
[2017-04-23] MEDS: INSULIN ASPART [NOVOLOG] 3 ML PEN SC SCH ×7 (08:05→21:00)
[2017-04-23] MEDS: FERROUS SULFATE (EC) 325 MG TAB PO SCH ×2 (08:55→20:44)
[2017-04-23] MEDS: NITROFURANTOIN (SR) 100 MG CAP PO SCH ×2 (08:55→20:44)
[2017-04-23] MEDS: DOCUSATE SODIUM 100 MG CAP PO SCH (08:55)
[2017-04-23] MEDS: PRENATAL VITAMIN PO SCH (08:56)
--- NOTE | 2017-04-23 13:13 | CONS ---
Date/Time of Note Date/Time of Note DATE: 04/23/17 TIME: 13:07 Assessment/Plan Assessment/Plan Chief Complaint/Hosp Course She has a history of gestational diabetes starting 11 years ago. After her last she reportedly was diabetic . She reported that she was not under any specific physician's care and she enjoyed good blood sugar control up to the time of due to diet and exercise protocol with no medical intervention. She has been managed for work by our colleagues at [facility] in the [facility] group. I do not have immediate access to the records but I am told by our in-house perinatologist that she has reviewed them. At this time the patient has been admitted for in adequate glycemic control along with somewhat large size baby and possible VSD. Again as stated I do not have access to her earlier laboratory testing her A1c at this time is 8.0. Dr. 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 I actually believe we could back off on the long-acting insulin slightly and go upward on the mealtime insulin slightly. As such I will lower the Levemir from 14-12 an increase the pre-meal from 3-4 units. She is stable for discharge on this regimen. She can either follow-up in my office in 2 weeks or with the perinatology office as documented in the consultation from Dr. Martinez. Please note her insurance is not going to be very cooperative with giving her medications as such I have handed her samples of the medications from my office she has enough to make it to the 40th week of based on what I given her. Consultation Date/Type/Reason Admit Date/Time Apr 18, 2017 at 22:14 Initial Consult Date 04/19/17 Type of Consultation: Endocrinology Reason for Consultation Diabetes mellitus type 2 who became and was admitted with an A1c of 8.0 ; please see perinatology consult of Dr. Martinez Referring Provider: ALPESH LEVINE MD 24 HR Interval Summary Free Text/Dictation Patient reports she is doing well without hypoglycemic reactions. Constitutional: no complaints (No fevers chills or sweats) Detailed Summary Respiratory: no complaints Cardiovascular: no complaints Gastrointestinal: no complaints Exam/Review of Systems Vital Signs Vitals Intake and Output 04/22/17 04/22/17 04/23/17 15:00 23:00 07:00 Intake Total 50 ml Output Total 600 ml Balance -550 ml Exam Constitutional: alert, oriented Neck: non-tender, supple Respiratory: clear to auscultation, normal air movement Cardiovascular: nl pulses, regular rate and rhythm Results Result Diagram: 04/22/17 0153 04/22/17 0153 Results 24 hrs Laboratory Tests Test 04/22/17 14:49 04/22/17 17:42 04/22/17 20:39 04/23/17 02:25 Bedside Glucose 121 132 136 103 Test 04/23/17 08:07 04/23/17 11:19 Bedside Glucose 76 159 Medications Medications Current Medications Prenat Multivit/ [place]/Iron/Folic Ac () 1 tab DAILY PO Last administered on 04/23/17 08:56; Admin Dose 1 TAB; Start 04/19/17 at 09:00 Ferrous Sulfate (Ferrous Sulfate (Ec)) 325 mg BID PO Last administered on 04/23 08:55; Admin Dose 325 MG; Start 04/19/17 at 09:00 Docusate Sodium (Colace) 100 mg DAILY PO Last administered on 04/23/17 08:55 ; Admin Dose 100 MG; Start 04/19/17 at 09:00 Diagnostic Test (Pha) (Accu-Chek) 1 ea 02 XX Last administered on 04/23/17 02 :28; Admin Dose 1 EA; Start 04/20/17 at 02:00 Insulin Detemir (Levemir) 14 unit DAILY@20 SC Last administered on 04/22/17 20:44; Admin Dose 14 UNIT; Start 04/19/17 at 21:30 Miscellaneous Information 1 ea NOTE XX ; Start 04/19/17 at 21:30 Glucose (Glutose) 15 gm Q15M PRN PO DECREASED GLUCOSE; Start 04/19/17 at 21:30 Glucose (Glutose) 22.5 gm Q15M PRN PO DECREASED GLUCOSE; Start 04/19/17 at 21: 30 Dextrose (D50w Syringe) 25 ml Q15M PRN IV DECREASED GLUCOSE; Start 04/19/17 at 21:30 Dextrose (D50w Syringe) 50 ml Q15M PRN IV DECREASED GLUCOSE; Start 04/19/17 at 21:30 Glucagon (Glucagen) 1 mg Q15M PRN IM DECREASED GLUCOSE; Start 04/19/17 at 21:30 Glucose (Glutose) 15 gm Q15M PRN BUCCAL DECREASED GLUCOSE; Start 04/19/17 at 21 :30 Nitrofurantoin Macrocrystals (Macrobid) 100 mg BID PO Last administered on t 08:55; Admin Dose 100 MG; Start 04/21/17 at 21:00 ALLISON AGUIRRE MD Apr 23, 2017 13:13
--- NOTE | 2017-04-23 18:31 | QN ---
Documentation Comment Had a syncopal episode yesterday not well explained by her glycemias. Having contractions. NST: ALPESH Anthony MD Apr 23, 2017 18:31
[2017-04-23] MEDS ORDERED: INSULIN DETEMIR [LEVEMIR] 3ML CART SC SCH (20:00)
[2017-04-24] MEDS: ACCU-CHEK XX SCH (02:08)
--- NOTE | 2017-04-24 08:02 | PD.PPDC ---
[employer] DEVEL[employer] Discharge Instruction Diagnosis Final Diagnosis: 33 weeks gestation Diabetes Mellitus.Polihydramnios. Condition Patient Condition: Good Diet Diet: Special Diet Special Diet: 2200 david ADA diet. 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
[2017-04-24] MEDS: INSULIN ASPART [NOVOLOG] 3 ML PEN SC SCH ×2 (08:05→08:21)
--- NOTE | 2017-04-24 08:07 | DS ---
Date/Time of Note Date/Time of Note DATE: 04/24/17 TIME: 08:04 Obstetrical Discharge Record Final Diagnosis Final Diagnosis: not delivered Other Final Diagnosis Uncontrolled diabetes.Polyhydramnios Condition on Discharge Physical Assessment Last Vitals: Stable afebrile,normotensive. Voiding: Yes Bowel Movement: Yes Breast: Soft, non-tender Calf Tenderness: No Patient Condition: Good (The patient is to continue Insulin as prescribed by as well as Macrobid 100 mg BID for her UTI) ALPESH LEVINE MD Apr 24, 2017 08:07
[2017-04-24] MEDS: NITROFURANTOIN (SR) 100 MG CAP PO SCH (09:13)
[2017-04-24] MEDS: FERROUS SULFATE (EC) 325 MG TAB PO SCH (09:13)
[2017-04-24] MEDS: DOCUSATE SODIUM 100 MG CAP PO SCH (09:20)
--- NOTE | 2017-04-24 14:26 | RADRPT ---
Vent Rate: 72 bpm RR Interval: 0 msec SD Interval: 140 msec QRS Duration: 78 msec QT Interval: 414 msec QTC Interval: 453 msec P-R-T [place]: -3 - 7 - 20 degrees Normal sinus rhythm Normal ECG Electronically Signed By: Graham Chan [id number]
== END 2017-04-24 10:20 | disposition home or self-care (01) | DRG 781 ==
LOC: OBT 22:11 → EDSTATUS 22:13 → L-D 22:14 → PP1 04-20 19:52
PROVIDERS: ADMIT Specialist; ATTEND Specialist
DX: O24.113 Pre-existing type 2 diabetes mellitus, in pregnancy, third trimester (principal); E11.9 Type 2 diabetes mellitus without complications; O40.3XX0 Polyhydramnios, third trimester, not applicable or unspecified; Z3A.33 33 weeks gestation of pregnancy
CPT/HCPCS: 36600; 76815; 76817; 76818; 80053; 81001; 82565; 82575; 82803; 82962; 83036; 84156; 85025; 85610; 85730; 86592; 86803; 86900; 86901; 87040; 87086; 87340; 93005; A4310; J1815; J7120

== ENCOUNTER 2017-05-11 07:30 | Inpatient (IN) | END 2017-05-15 19:05 | disposition home or self-care (01) | DRG 765 ==